=== PATIENT | female | born 1965 | race American Indian/Alaskan Native ===

== ENCOUNTER 2018-11-28 10:35 | Emergency (ER) | payer SELFPAY ==
[2018-11-28] MEDS ORDERED: NACL 0.9% 1000 ML 1,000 ML IV ONE (12:06)
[2018-11-28] MEDS ORDERED: SOLU-Medrol IV ONE (12:06)
--- NOTE | 2018-11-28 12:06 | Emergency Department Report ---
ED Headache HPI - General Chief Complaint: Headache Stated Complaint: HIGH BP Time Seen by Provider: 11/28/18 11:58 Source: patient Exam Limitations: no limitations - History of Present Illness Initial Comments: Condition is a 53-year-old female presents emergency with right-sided headache. Patient states the headache and off for days and is worsening. Patient states she believed it was her blood pressure. Patient states her blood pressure when mildly elevated since her headache started. Patient denies chest pain shortness of breath. Patient denies dizziness. Patient denies loss of vision. Patient denies blurry vision. Patient is currently on prednisone daily. Patient states she takes prednisone for sarcoidosis. Quality: severe, constant Head Injury Location: temporal Recent Head Trauma: no recent headache/trauma, occasional headaches Modifying Factors: improves with: exposure to light, medication, movement, rest Associated Symptoms: denies symptoms. denies: confusion, fatigue, facial pain, fever/chills, flushing, loss of consciousness, nausea/vomiting, nasal congestion, nasal drainage, numbness in legs/feet, rash, seizures, sinus infection, stiff neck, vision changes, weakness Allergies/Adverse Reactions: Allergies shellfish derived Allergy (Verified 10/28/15 16:36) Hives Home Medications: Ambulatory Orders hydroCHLOROthiazide [Hctz] 25 mg PO QDAY #30 tablet 09/02/13 Pantoprazole [Protonix] 20 mg PO BID #60 tablet. 10/18/13 predniSONE [Deltasone] 20 mg PO QDAY #5 tab 01/20/14 Labetalol [Normodyne TAB] 200 mg PO BID #60 tablet 10/28/15 predniSONE [Deltasone] 5 mg PO QDAY #30 tab 10/28/15 traMADol [Ultram] 50 mg PO Q6HR PRN #30 tablet 10/28/15 Prednisone [predniSONE 10 mg (6-Day Pack, 21 Tabs)] 20 mg PO QDAY #5 tab.ds.pk 11/28/18 ED Review of Systems ROS: Stated complaint: HIGH BP Other details as noted in HPI Constitutional: denies: chills, fever Eyes: denies: eye pain, eye discharge, vision change ENT: denies: ear pain, throat pain Respiratory: denies: cough, shortness of breath, wheezing Cardiovascular: denies: chest pain, palpitations Endocrine: no symptoms reported Gastrointestinal: denies: abdominal pain, nausea, diarrhea Genitourinary: denies: urgency, dysuria, discharge Musculoskeletal: denies: back pain, joint swelling, arthralgia Skin: denies: rash, lesions Neurological: headache. denies: weakness, paresthesias Psychiatric: denies: anxiety, depression Hematological/Lymphatic: denies: easy bleeding, easy bruising ED Past Medical Hx - Past Medical History Previous Medical History?: Yes Hx Hypertension: Yes Additional medical history: sarcoidosis - Surgical History Past Surgical History?: No Additional Surgical History: sarcoidosis - Family History Family history: no significant - Social History Smoking Status: Never Smoker Substance Use Type: None - Medications Home Medications: Home Medications Medication Instructions Recorded Confirmed Last Taken Type hydroCHLOROthiazide [Hctz] 25 mg PO QDAY #30 tablet 09/02/13 10/17/13 Unknown Rx Pantoprazole [Protonix] 20 mg PO BID #60 tablet.dr 10/18/13 Unknown Rx predniSONE [Deltasone] 20 mg PO QDAY #5 tab 01/20/14 Unknown Rx Labetalol [Normodyne TAB] 200 mg PO BID #60 tablet 10/28/15 Unknown Rx predniSONE [Deltasone] 5 mg PO QDAY #30 tab 10/28/15 Unknown Rx traMADol [Ultram] 50 mg PO Q6HR PRN #30 tablet 10/28/15 Unknown Rx Prednisone [predniSONE 10 mg 20 mg PO QDAY #5 tab.ds.pk 11/28/18 Unknown Rx (6-Day Pack, 21 Tabs)] ED Physical Exam - General Limitations: No Limitations General appearance: alert, in no apparent distress - Head Head exam: Present: atraumatic, normocephalic - Eye Eye exam: Present: normal appearance, PERRL Pupils: Present: normal accommodation - ENT ENT exam: Present: mucous membranes moist - Neck Neck exam: Present: normal inspection - Respiratory Respiratory exam: Present: normal lung sounds bilaterally. Absent: respiratory distress - Cardiovascular Cardiovascular Exam: Present: regular rate, normal rhythm. Absent: systolic murmur, diastolic murmur, rubs, gallop - GI/Abdominal GI/Abdominal exam: Present: soft, normal bowel sounds - Extremities Exam Extremities exam: Present: normal inspection - Back Exam Back exam: Present: normal inspection - Neurological Exam Neurological exam: Present: alert, oriented X3 - Psychiatric Psychiatric exam: Present: normal affect, normal mood - Skin Skin exam: Present: warm, dry, intact, normal color. Absent: rash ED Course Vital Signs 11/28/18 11/28/18 10:43 14:25 Temperature 97.7 F Pulse Rate 86 82 Respiratory 18 16 Rate Blood Pressure 145/100 Blood Pressure 142/96 [Left] O2 Sat by Pulse 98 99 Oximetry - Reevaluation(s) Reevaluation #1: Discussed all results with patient. Patient appears to be having a tension headache versus acute headache. Patient had a CT done and was negative. Patient states her headache is improved. Discussed all results with patient. Discussed discharge instructions the patient. Patient voiced understanding of all instructions. Patient is stable for discharge. Patient will be discharged home. 11/28/18 13:52 ED Medical Decision Making - Lab Data Result diagrams: 11/28/18 12:22 11/28/18 12:22 - Radiology Data Radiology results: report reviewed, image reviewed PROCEDURE: CT HEAD/BRAIN WO CON TECHNIQUE: CT of the head was performed without intravenous contrast. HISTORY: Headache COMPARISONS: None FINDINGS: The ventricles are normal in position and shape. The ventricles are nondilated. No intracranial hemorrhage, mass, mass effect or evidence of acute ischemic infarct. There is a focal area of fluid attenuation within the right thalamus measuring 4 mm. Mild patchy low- attenuation is seen in the left frontal periventricular white matter. The basilar cisterns are patent. The paranasal sinuses are clear. The mastoid air cells are clear. The orbits are intact. The calvarium is intact. No extracranial soft tissue swelling. IMPRESSION: 1. No acute intracranial abnormality. 2. Old right thalamic lacunar infarct versus prominent perivascular space. 3. Nonspecific area of low-attenuation in the left frontal periventricular white matter which may represent chronic microvascular ischemic changes versus a demyelinating or inflammatory process. - Medical Decision Making Condition is a 53-year-old female that presents emergency room with a right sided headache. Patient's body consistent with tension headache. Patient will be discharged home on a steroid pack. Patient's labs unremarkable. Patient's sedimentation rate negative. In the differential. Arteritis is a possibility however the sedimentation rate is negative. Patient will be discharged home. Patient has history of sarcoidosis and patient will need to follow up with her primary care and her physician is managing her sarcoidosis. Patient's head CT is negative. Patient responded well to therapy. Patient's headache improved with saline bolus and Medrol injection. - Differential Diagnosis temporal arteritis. Headache. Tension headache. Migraine. Critical care attestation.: If time is entered above; I have spent that time in minutes in the direct care of this critically ill patient, excluding procedure time. ED Disposition Clinical Impression: Headache Qualifiers: Headache type: tension-type Headache chronicity pattern: acute headache Intractability: not intractable Qualified Code(s): G44.209 - Tension-type headache, unspecified, not intractable Hypertension Qualifiers: Hypertension type: essential hypertension Qualified Code(s): I10 - Essential (primary) hypertension Disposition: TO HOME OR SELFCARE Is pt being admited?: No Does the pt Need Aspirin: No Condition: Stable Instructions: Tension Headache (ED), Acute Headache (ED), Hypertension (ED) Additional Instructions: Patient to follow up with primary care in 2-3 days. Patient to return to emergency room if condition worsens. Patient to take Tylenol or ibuprofen when necessary for pain. Patient to rest. Patient increase water. Patient to rest. Patient to continue all medications. Prescriptions: Prednisone [predniSONE 10 mg (6-Day Pack, 21 Tabs)] 20 mg PO QDAY #5 tab.ds.pk Referrals: [facility] [Other] - 3-5 Days Time of Disposition: 13:57
[2018-11-28 12:46] LABS: Basophils # (Auto) 0.1 K/mm3 (0.0-0.1); Basophils % (Auto) 0.4 % (0.0-1.8); Hemoglobin 15.8 gm/dl (10.1-14.3); Lymphocytes # (Auto) 1.9 K/mm3 (1.2-5.4); Lymphocytes % (Auto) 14.3 % (13.4-35.0); Mean Corpuscular HGB Conc 34 % (30-34); Mean Corpuscular Volume 93 fl (79-97); Monocytes # (Auto) 0.5 K/mm3 (0.0-0.8); Monocytes % (Auto) 3.5 % (0.0-7.3); Platelet Count 332 K/mm3 (140-440); Red Blood Count 5.08 M/mm3 (3.65-5.03); Red Cell Distribution Width 14.6 % (13.2-15.2)
[2018-11-28 13:07] LABS: Alanine Aminotransferase 16 units/L (7-56); Albumin 4.2 g/dL (3.9-5); BUN/Creatinine Ratio 21; Blood Urea Nitrogen 17 mg/dL (7-17); Calcium 9.4 mg/dL (8.4-10.2); Hemolysis Index 43
[2018-11-28 13:09] LABS: Erythrocyte Sedimentation Rate 4 mm/Hr (0-20)
--- NOTE | 2018-11-28 13:44 | Cat Scan Report ---
PROCEDURE: CT HEAD/BRAIN WO CON TECHNIQUE: CT of the head was performed without intravenous contrast. HISTORY: Headache COMPARISONS: None FINDINGS: The ventricles are normal in position and shape. The ventricles are nondilated. No intracranial hemorrhage, mass, mass effect or evidence of acute ischemic infarct. There is a focal area of fluid attenuation within the right thalamus measuring 4 mm. Mild patchy low-attenuation is s een in the left frontal periventricular white matter. The basilar cisterns are patent. The paranasal sinuses are clear. The mastoid air cells are clear. The orbits are intact. The calvarium is intact. No extracranial soft tissue swelling. IMPRESSION: 1. No acute intracranial abnormality. 2. Old right thalamic lacunar infarct versus prominent perivascular space. 3. Nonspecific area of low-attenuation in the left frontal periventricular white matter which may rep resent chronic microvascular ischemic changes versus a demyelinating or inflammatory process. This document is electronically signed by Christianne Loco., Nov 28 2018 01:42:43 PM ET
[2018-11-28 14:25] VITALS: BP 142/96
== END 2018-11-28 14:25 | disposition home or self-care (01) ==
LOC: ED 10:35
DX: G44.209 Tension-type headache, unspecified, not intractable (principal); I10 Essential (primary) hypertension; Z91.013 Allergy to seafood
CPT/HCPCS: 36415; 70450; 80053; 85025; 85652; 96374; 99284; J2930; J7030